=== PATIENT | female | born 1995 | race Caucasian/White ===

== ENCOUNTER 2017-05-17 08:51 | Inpatient (IN) | payer OTHER ==
[~2017-05-17] VITALS: Ht 162.6 cm; Wt 75.0 kg
[2017-05-17] MEDS ORDERED: LEVO100T5 PO (08:59)
[2017-05-17] MEDS ORDERED: PRENTAB9 PO (08:59)
[2017-05-17 09:02] VITALS: BP 130/74
[2017-05-17] MEDS ORDERED: miSOPROStol 50 MCG 1/2 TAB (S0191) PO ONE (10:15)
[2017-05-17] MEDS ORDERED: LR 1,000 ML IV SCH ×3 (10:30→23:45)
[2017-05-17 11:01] VITALS: BP 106/51
[2017-05-17 11:06] LABS: MEAN CORPUSCULAR HEMOGLOBIN 31.1 pg (27.0-33.0); RED CELL DISTRIBUTION WIDTH 13.3 % (11.5-14.5); WHITE BLOOD COUNT 8.1 K/mm3 (4.0-10.0)
[2017-05-17 12:16] VITALS: BP 117/70
[2017-05-17 13:12] VITALS: BP 125/75
[2017-05-17 15:13] VITALS: BP 120/63
[2017-05-17 16:12] VITALS: BP 122/69
[2017-05-17] MEDS ORDERED: miSOPROStol 50 MCG 1/2 TAB (S0191) PV ONE (16:15)
--- NOTE | 2017-05-17 16:50 | HPE ---
DATE OF ADMISSION: 05/17/2017 HISTORY OF PRESENT ILLNESS: this lady is a 22-year-old 1, para 0, last menstrual period (LMP) 08/03/2016, estimated date of confinement (EDC) 05/10/2017, by early ultrasound and is late term induction of labor at 41 weeks gestation. Risk factors is she is hypothyroid on Synthroid medication. LABORATORY DATA: O positive, HIV negative, hepatitis negative, RPR negative, rubella immune. Varicella by history. Urine negative. Gonorrhea and chlamydia negative. One-hour glucose was 90. GBS was negative. PHYSICAL EXAMINATION: HEAD/NECK: On examination she is normocephalic, atraumatic. Neck: Full range of motion. Pupils equal and react to light. Thyroid is midline. No jugular venous distention (JVD), bruits, 30 grams, nontender. Esophagus is midline. She has presently a category one strip with accelerations and rhythm normal between 110 and 140, with a baseline variability of 6-25 beats per minute. LUNGS: Clear bilaterally to bases. Distal pulses symmetric. No evidence of deep venous thrombosis (DVT), pulmonary embolism (PE) or superficial phlebitis. She has extensive tattoos on her right thigh. No costovertebral angle tenderness. Uterus is nontender. Four quadrant bowel sounds are noted. She has no rashes, lesions or pruritus. She is extensively tattooed. She has no arthralgia, myalgia. No complaints of cough, wheezes, shortness of breath or dyspnea on exertion. No headaches. No known allergies. No palpitations or chest pain. She does not bruise easily and she does not bleed. She is neuro complete. No incontinence, urgency or frequency. No nausea, vomiting, diarrhea or constipation. No diabetic issues. GYNECOLOGIC HISTORY: Unremarkable. PAST MEDICAL HISTORY: Unremarkable. PAST SURGICAL HISTORY: None. She does not smoke or drink or abuse drugs. There is no domestic violence and she is to a soldier. ASSESSMENT: In summary, we have a late term gestation for induction of labor with an unfavorable cervix. Her blood pressure is 130/74, respirations are 18, pulse is 103 and temperature 98.2. Urine is 1.010, pH seven, negative and trace for protein. In summary we have a late term gestation for induction of labor. We discussed the risks and benefits of induction of labor including distress, increased risk of section, tetanic contractions, admission to the intensive care unit (NICU). We discussed the methods, including Cytotec, Reyna bulb, Pitocin. The patient is not a candidate for Reyna bulb yet because of unfavorable cervix being thick, close posterior and high. Our plan of management is to start with Cytotec 50 mg by mouth every four hours until the cervix becomes ripened enough for possible Reyna bulb and induction of labor. The patient's plan of pain management is epidural. She is group B streptococcus (GBS) negative. and expressed understanding of the plan. The patient is to be started immediately present.
[2017-05-17] MEDS ORDERED: BUTORPHANOL 2 MG/ML INJ (J0595) IV ONE (17:30)
[2017-05-17] MEDS ORDERED: PROMETHAZINE INJ 25 MG/ML VIAL (J2550) IV ONE (17:30)
[2017-05-17] MEDS ORDERED: SUCCINYLCHOLINE 100 MG/5 ML SYRINGE (J0330) As Ordered ONE (21:54)
[2017-05-17] MEDS ORDERED: PROPOFOL 200 MG/20 ML VIAL As Ordered ONE (21:54)
[2017-05-17] MEDS ORDERED: ceFAZolin 2 GM/D5W 50 ML IV BAG (J0690) As Ordered ONE (21:55)
[2017-05-17] MEDS ORDERED: BICITRA 30ML SOLN UDC As Ordered ONE (21:55)
[2017-05-17] MEDS ORDERED: MIDAZOLAM INJ 2 MG/2 ML VIAL (J2250) As Ordered ONE (22:11)
[2017-05-17] MEDS ORDERED: fentaNYL 100 MCG/2 ML INJECTION (J3010) As Ordered ONE ×2 (22:13→22:39)
[2017-05-17] MEDS ORDERED: MORPHINE PRES-FREE INJ 10 MG/10 ML VIAL (J2274) As Ordered ONE (22:18)
[2017-05-17 22:25] LABS: CORD GAS ABE A -10.8; CORD GAS HCO3 A 18.7 MEQ/L; CORD GAS O2 SAT A 17.9 %; CORD GAS PCO2 A 56.2 mmHg; CORD GAS PH A 7.139 UNITS; CORD GAS PO2 A 15.6 mmHg; CORD GAS SBC A 14.5 MEQ/L; CORD GAS TCO2 A 20.4 MEQ/L
[2017-05-17] MEDS ORDERED: LIDOCAINE 2% INJ 100 MG/5 ML SDV (FOR ANES.) As Ordered ONE (22:26)
[2017-05-17] MEDS ORDERED: ONDANSETRON 4MG/2ML VIAL (J2405) As Ordered ONE (22:26)
[2017-05-17 22:28] LABS: CORD GAS ABE V -9.5; CORD GAS HCO3 V 18.2 MEQ/L; CORD GAS O2 SAT V 55.7 %; CORD GAS PCO2 V 46.4 mmHg; CORD GAS PH V 7.212 UNITS; CORD GAS PO2 V 28.7 mmHg; CORD GAS SBC V 16.1 MEQ/L; CORD GAS TCO2 V 19.6 MEQ/L
[2017-05-17] MEDS ORDERED: BUPIVACAINE HCL 0.25% 10 ML VIAL As Ordered ONE (22:39)
[2017-05-17] MEDS ORDERED: KETOROLAC 60 MG/2 ML VIAL (J1885) As Ordered ONE (22:43)
[2017-05-17] MEDS ORDERED: MEPERIDINE INJ 25 MG/ML VIAL (J2175) As Ordered ONE (23:39)
[2017-05-17] MEDS: MEPERIDINE INJ 25 MG/ML VIAL (J2175) IV PRN ×2 (23:40→23:50)
[2017-05-17] MEDS ORDERED: PERCOCET 5MG/325MG TAB PO PRN ×2 (23:45)
[2017-05-17] MEDS ORDERED: fentaNYL 100 MCG/2 ML INJECTION (J3010) IV PRN (23:45)
[2017-05-17] MEDS ORDERED: ONDANSETRON 4MG/2ML VIAL (J2405) IV PRN (23:45)
[2017-05-17] MEDS ORDERED: RHOGAM 300 MCG (1500 IU) INJ (J2790) IM SCH (23:45)
[2017-05-17] MEDS ORDERED: MOM 30ML SUSPENSION UDC PO PRN (23:45)
[2017-05-17] MEDS ORDERED: DOCUSATE SODIUM 100 MG CAP PO PRN (23:45)
[2017-05-17] MEDS ORDERED: ANUSOL HC CREAM 30GM TOP PRN (23:45)
[2017-05-17] MEDS ORDERED: METOCLOPRAMIDE INJ 10MG/2ML VIAL (J2765) IV PRN (23:45)
[2017-05-17] MEDS ORDERED: MEASLES,MUMPS,RUBELLA VACCINE INJ (MMR-II) (90707) SC SCH (23:45)
[2017-05-17] MEDS ORDERED: METHYLERGONOVINE MALEATE 0.2 MG TAB PO PRN (23:45)
[2017-05-18] VITALS (9 sets, daily range): BP systolic 109–136; BP diastolic 56–76
[2017-05-18] MEDS: PERCOCET 5MG/325MG TAB PO PRN ×4 (04:16→19:35)
[2017-05-18] MEDS: LEVOTHYROXINE 100MCG TABLET (0.1MG) PO SCH (05:52)
[2017-05-18 06:45] LABS: MEAN CORPUSCULAR HGB CONC 33.4 g/dl (32.0-36.5); RED CELL DISTRIBUTION WIDTH 13.1 % (11.5-14.5); WHITE BLOOD COUNT 14.8 K/mm3 (4.0-10.0)
[2017-05-18] MEDS: IBUPROFEN 800 MG TAB PO SCH ×3 (07:15→21:08)
[2017-05-18] MEDS: PRENATAL VITAMIN TAB PO SCH (07:15)
--- NOTE | 2017-05-18 09:15 | REP ---
KUB: Single view. History: Stat . Findings: The upper abdomen is excluded from the field of view. There is some draping or gown artifact projecting over the right flank. No opaque foreign body is seen. No dilated bowel loop seen. Question some ascites. Signed by Miky Orantes MD 05/18/2017 11:30 A
--- NOTE | 2017-05-18 13:02 | IPN ---
DATE OF SERVICE: 05/18/2017 This lady and requested circumcision of their male infant. After discussing risks and benefits of circumcision, the medical and nonmedical indications, penile block, and aftercare, expressed understanding of penile block and aftercare. Signed and witnessed the consent form. We now await the clearance by the director of regulatory affairs.
--- NOTE | 2017-05-18 13:06 | IPN ---
DATE: 05/18/2017 day #1. This is a 22-year-old 1, now para 1 who was admitted for induction of labor, late term, had a stat section for nonreassuring heart and prolonged deceleration, remote from delivery. Live male , 7 pounds 1 ounce, 3198 grams. scores of 6, 7, and 8 at one, five and ten minutes respectfully. Arterial pH 7.1, base excess -10.8, venous pH 7.21, base excess -9.5. She is hypothyroid and started on her Synthroid medication. She is presently breast-feeding. She is alert, awake, well orientated. Abdomen: Soft. Uterus two below. Lochia is moderate. Incision is clean and dry. Bowel sounds are noted and Reyna catheter is draining. The rest of the examination is unremarkable. There is no evidence of deep vein thrombosis (DVT) pulmonary embolism (PE) or superficial phlebitis. Chest is clear bilaterally to bases. Heart sounds are normal with no murmurs. Her blood pressure is 133/63, respirations 18, pulse is 81, temperature is 99.0. In summary, we have a late term gestation, emergency section for a live male . control was discussed, and the patient is uncertain. Will discuss that at her 2-week incisional check.
--- NOTE | 2017-05-18 13:52 | RO ---
DATE OF PROCEDURE: 05/17/2017 PREOPERATIVE DIAGNOSIS: Nonreassuring heart strip, persistent bradycardia remote from delivery. POSTOPERATIVE DIAGNOSIS: Nonreassuring heart strip remote from delivery, persistent bradycardia, cord entrapment. OPERATION PROPOSED: STAT section. OPERATION PERFORMED: STAT section. SURGEON: Dr. Martin Putnam. NURSING ADMIN: Rodger. ANESTHESIA: General. ESTIMATED BLOOD LOSS: 500 mL. This lady is a 3 who was admitted for induction of labor at late term gestation. She had Cytotec times two. She got into good active contractions thought to be 2-3 cm and 100% effaced and artificial rupture of membranes (AROM) draining clear Liqui. She persisted to have good contractions but had some late decelerations with initially recovery but eventually had a persistent prolonged bradycardia with recovery. A scalp sample was placed in order to identify the heart and when that was confirmed because she was only 2-3 cm and remote from delivery, emergency section was performed. Under general anesthesia, splash and dash, a low transverse incision was made through the skin passing through abdominal layers securing hemostasis. Opening the peritoneal cavity, bladder reflected down low transverse into the uterus where there was clear Liqui. We delivered a pale infant male. Cord around the neck tight plus around the body once tight weighing 7 pounds 1 ounce, 3198 grams, of 6, 7 and 8 and one, five and 10 minutes respectively. Arterial pH was 7.13, base excess -10.8, venous pH 7.21, base excess -9.5. The placenta was manually removed. Three-vessel, cord membranes and tissues intact. The uterus contracted well down under Pitocin. The lower segment oversewn in usual fashion in two layers and reperitonealization was performed. With that done, instrument and pad count correct were noted and both ovaries and tubes at the fimbriated end were noted to be normal. Perineum was closed with a running #2-0 stitch, fascia interrupted subcu and Dexon to the skin. Marcaine 0.25% 10 mL to the skin and spray. A flat plate of the abdomen was done. No evidence to suggest any intra-abdominal foreign body. The patient was awoken and taken to recovery. In summary, we have a STAT section for nonreassuring heart tones with nonrecovery and persistent bradycardia delivered a live male .
[2017-05-19 05:42] VITALS: BP 132/64
[2017-05-19] MEDS ORDERED: IBUPROFEN 800 MG TAB PO SCH (06:00)
[2017-05-19] MEDS: LEVOTHYROXINE 100MCG TABLET (0.1MG) PO SCH (06:10)
[2017-05-19] MEDS: IBUPROFEN 800 MG TAB PO SCH (06:11)
--- NOTE | 2017-05-19 07:17 | IPNPDOC ---
Text Note Date of Service The patient was seen on 05/19/17. NOTE POD2 prog note, del was 17JUN ~2200 States feeling well, no complaints. No heavy VB. Pain controlled. Voiding, ambulatory. Bonding well and breast feeding well. No CP/SOB/LP VSSAF CTAB RRR Ut at U-2, firm Ext no CCE Inc CDI, no erythema/induration a/p: Doing well. d/c likely tomorrow. Sessions VS,Sunitha, I+O VSSunitha I+O Vital Signs Date Time Temp Pulse Resp B/P (MAP) Pulse Ox O2 Delivery O2 Flow Rate FiO2 05/19/17 05:42 97.8 85 18 132/64 (86) 05/18/17 17:43 98 05/18/17 06:04 Room Air 05/17/17 23:10 10 I&O- Last 24 Hours up to 6 AM 05/19/17 06:00 Output Total 950 ml Balance -950 ml SESSIONS,ADRIEN Houser MD May 19, 2017 07:17
[2017-05-19] MEDS: PRENATAL VITAMIN TAB PO SCH (08:37)
[2017-05-19] MEDS ORDERED: OXYC1TAB23 PO (12:27)
[2017-05-19] MEDS ORDERED: ANUS2.5C2 PR (12:27)
[2017-05-19] MEDS ORDERED: IBUP-1114 PO (12:27)
[2017-05-19] MEDS ORDERED: COLA100C3 PO (12:27)
[2017-05-19] MEDS ORDERED: MOM30SS PO (12:27)
--- NOTE | 2017-05-19 13:46 | DSES ---
DATE OF ADMISSION: 05/17/2017 DATE OF DISCHARGE: 05/19/2017 The patient is a 22-year-old 1, para 1 now status post a primary low transverse section, per documentation for nonreassuring heart rate status. Her report to this discharging provider, without complications. scores were 6, 7, and 8. Male infant. 3198 weight. Rh positive. Delivery time was 2208 hours on 05/17/2017. Per verbal report with Dr. Putnam this morning, comfortable releasing at this time. PRE-PROCEDURE DIAGNOSIS: 1. Term . 2. Non-reassuring heart rate tracing. POSTPROCEDURE DIAGNOSES: 1. Term . 2. Non-reassuring heart rate tracing. COMPLICATIONS: None. HOSPITALIZATION COURSE: The patient is a 22-year-old 1, para 1, now status post reported uncomplicated primary low transverse section. All discharge criteria is met. Safe to release at this time. DIET: As tolerated. ACTIVITY: Per routine postoperative section recommendations. FOLLOWUP: 2 weeks for an incision check or sooner if necessary. Scheduled 6-week check. Breast feeding. MEDICATIONS: Previously scripted by operative surgeon. Reviewed routine precautions and safe to release at this time. Alban Nath OB-CERTIFIED NURSE OPERATING ROOM VASYL
== END 2017-05-19 12:52 | disposition home or self-care (01) | DRG 766 ==
LOC: M LDI 08:51 → M OBS 22:45
PROVIDERS: ADMIT Obstetrics & Gynecology; ATTEND Obstetrics & Gynecology
PROC: 10D00Z1 Extraction of Products of Conception, Low, Open Approach (ICD-10-PCS; principal; 2017-05-17)
PROC: 3E0P7GC Introduction of Other Therapeutic Substance into Female Reproductive, Via Natural or Artificial Opening (ICD-10-PCS; 2017-05-17)
DX: O48.0 Post-term pregnancy (principal); O99.284 Endocrine, nutritional and metabolic diseases complicating childbirth; E03.9 Hypothyroidism, unspecified; Z3A.41 41 weeks gestation of pregnancy; O76 Abnormality in fetal heart rate and rhythm complicating labor and delivery; O69.1XX0 Labor and delivery complicated by cord around neck, with compression, not applicable or unspecified; O69.82X0 Labor and delivery complicated by other cord entanglement, without compression, not applicable or unspecified; Z37.0 Single live birth

== ENCOUNTER 2018-10-12 14:39 | Emergency (ER) | payer OTHER ==
[2018-10-12 15:17] LABS: AMORPHOUS SEDIMENT RFX MODERATE (NEGATIVE); KETONE, URINE AUTO RFX NEGATIVE (NEGATIVE); LEUKOCYTE ESTERASE UR AUTO RFX NEGATIVE (NEGATIVE); MUCUS, URINE RFX SMALL (NEGATIVE); NITRITE, URINE AUTO RFX NEGATIVE (NEGATIVE); RBC, URINE AUTO RFX 17 /HPF (0-3); SPECIFIC GRAVITY UR AUTO RFX 1.018 (1.002-1.035); SQUAM EPITHELIAL CELL UR AURFX 0 /HPF (0-6); WBC, URINE AUTO RFX 1 /HPF (0-3)
[2018-10-12 15:19] LABS: BASO % 0.3 % (0.0-1.0); EOS # 0.1 10^3/uL (0.0-0.50); HEMATOCRIT 43.1 % (36.0-47.0); HEMOGLOBIN 14.7 g/dl (12.0-15.5); IMMATURE GRANULOCYTE % 0.3 % (0-3.0); LYMPH # 1.5 10^3/uL (1.5-6.5); LYMPH % 21.2 % (24.0-44.0); MEAN CORPUSCULAR HEMOGLOBIN 30.8 pg (27.0-33.0); MEAN CORPUSCULAR HGB CONC 34.1 g/dl (32.0-36.5); MEAN CORPUSCULAR VOLUME 90.2 fl (80.0-96.0); MONO # 0.4 10^3/uL (0.0-0.8); MONO % 6.2 % (0.0-5.0); NEUTROPHILS # 4.9 10^3/uL (1.8-7.7); PLATELET COUNT, AUTOMATED 281 10^3/uL (150-450); RED BLOOD COUNT 4.78 10^6/uL (4.00-5.40); RED CELL DISTRIBUTION WIDTH 11.9 % (11.5-14.5)
[2018-10-12 15:48] LABS: HCG, SERUM QUANTITATIVE 140 MIU/ML
== END 2018-10-12 16:29 | disposition home or self-care (01) ==
LOC: M ED 14:39
DX: O03.9 Complete or unspecified spontaneous abortion without complication (principal); O02.1 Missed abortion; O99.280 Endocrine, nutritional and metabolic diseases complicating pregnancy, unspecified trimester; Z3A.10 10 weeks gestation of pregnancy; Z79.899 Other long term (current) drug therapy
CPT/HCPCS: 76801

== ENCOUNTER 2018-12-09 13:24 | Emergency (ER) | payer OTHER ==
[~2018-12-09] VITALS: Ht 160 cm; Wt 65.9 kg
[~2018-12-09 13:24] MED LIST: ANUS2.5C2 PR; COLA100C5 PO; IBUP-1114 PO; LEVO100T5 PO; MOM30SS PO; OXYC1TAB23 PO; PREN1TAB14 PO; PRENTAB9 PO
[2018-12-09] MEDS ORDERED: ACETAMINOPHEN 325 MG TAB PO ONE (14:15)
[2018-12-09 14:51] VITALS: BP 128/68
--- NOTE | 2018-12-09 14:51 | REP ---
Bilateral lower extremity Duplex Doppler venous ultrasound: Real time compression and duplex Doppler interrogation of the bilateral lower extremity deep venous system is performed. Bilaterally, the common femoral, superficial femoral and popliteal veins are fully compressible with transducer pressure and demonstrate normal spontaneous and phasic flow, without evidence of deep venous thrombosis. Impression: No evidence of deep venous thrombosis of the bilateral lower extremity femoral popliteal venous system. Electronically Signed by Manolo Metzger MD 12/09/2018 02:43 P
--- NOTE | 2018-12-10 02:54 | ECGEPIP ---
Stationary ECG Study [facility] - ED Test Date: 2018-12-09 Pat Name: JORDANA VELA Department: Room: - Gender: F [employer]: : 1995 Requested By: Nunu Regan Order Number: [id number] Reading MD: Rm Cabrera Measurements Intervals [place] Rate: 84 P: 49 TX: 132 QRS: 34 QRSD: 90 T: -15 QT: 366 QTc: 433 Interpretive Statements SINUS RHYTHM NONSPECIFIC ST & T-WAVE ABNORMALITY NO PRIORS FOR COMPARISON Electronically Signed On 12-10-2018 2:54:51 EST by Rm Cabrera
== END 2018-12-09 15:14 | disposition home or self-care (01) ==
LOC: M ED 13:24
DX: R07.9 Chest pain, unspecified (principal); E03.9 Hypothyroidism, unspecified; Z79.890 Hormone replacement therapy

== ENCOUNTER 2019-05-27 20:47 | Outpatient (CLI) | payer OTHER ==
[~2019-05-27] VITALS: Ht 160 cm; Wt 75.4 kg
== END 2019-05-27 22:15 | disposition home or self-care (01) ==
LOC: M LDO 20:47
PROVIDERS: ATTEND Obstetrics & Gynecology
DX: Z04.3 Encounter for examination and observation following other accident (principal); O26.893 Other specified pregnancy related conditions, third trimester; W19.XXXA Unspecified fall, initial encounter; Y92.89 Other specified places as the place of occurrence of the external cause; Y93.89 Activity, other specified; Y99.8 Other external cause status; Z3A.28 28 weeks gestation of pregnancy
CPT/HCPCS: G0378; G0463